=== PATIENT | female | born 1995 | race Caucasian/White ===

== ENCOUNTER 2022-03-05 21:41 | Day surgery (SDC) | payer OTHER ==
[2022-03-05 22:07] VITALS: BMI 31.6
[2022-03-05] MEDS ORDERED: hydrALAZINE 20 MG/ML VIAL SLOW IVP PRN (22:12)
== END 2022-03-06 00:19 | disposition home or self-care (01) ==
LOC: CSHLD/OP 21:41
PROVIDERS: ATTEND Obstetrics & Gynecology
DX: O36.8130 Decreased fetal movements, third trimester, not applicable or unspecified (principal); Z3A.34 34 weeks gestation of pregnancy; Z86.16 Personal history of COVID-19; Z79.82 Long term (current) use of aspirin; Z88.0 Allergy status to penicillin; Z28.310 Unvaccinated for COVID-19
CPT/HCPCS: 76819

== ENCOUNTER 2022-04-09 08:58 | Outpatient (CLI) | payer OTHER | END 2022-04-09 08:59 | disposition home or self-care (01) | LOC: CSHLAB 08:58 | PROVIDERS: ATTEND Obstetrics & Gynecology | DX: Z20.822 Contact with and (suspected) exposure to COVID-19 (principal) | CPT/HCPCS: U0003; U0005 ==

== ENCOUNTER 2022-04-10 17:06 | Inpatient (IN) | payer OTHER ==
[2022-04-10] MEDS ORDERED: hydrALAZINE 20 MG/ML VIAL SLOW IVP PRN ×2 (18:27→22:51)
[2022-04-10 18:59] VITALS: BMI 32.5
[2022-04-10] MEDS ORDERED: Promethazine HCl 25 MG/ML VIAL IM PRN ×2 (19:16→20:10)
[2022-04-10] MEDS ORDERED: Ondansetron PF 4 MG/2 ML Vial IVP PRN ×2 (19:16→20:10)
[2022-04-10] MEDS ORDERED: Butorphanol Tartrate 1 MG/ML VIAL SLOW IVP PRN (19:16)
[2022-04-10] MEDS ORDERED: Butorphanol Tartrate 1 MG/ML VIAL ONE (19:21)
[2022-04-10] MEDS ORDERED: Bicitra 30 ML UDCUP PO PRN (19:45)
[2022-04-10] MEDS ORDERED: Clindamycin/D5W 900 MG in Premix Bag 1 BAG IVPB SCH (19:45)
[2022-04-10] MEDS ORDERED: Azithromycin 500 MG in Sodium Chloride 0.9% 250 ML 250 ML IVPB SCH (19:45)
[2022-04-10] MEDS ORDERED: Famotidine/PF 20 mg/2ml Vial SLOW IVP PRN (19:45)
[2022-04-10] MEDS ORDERED: ceFAZolin 2 GM/Dextrose 50 ML IVPB ONE (19:49)
[2022-04-10] MEDS ORDERED: Azithromycin 500 MG VIAL ONE (19:49)
[2022-04-10] MEDS ORDERED: Dexamethasone 4 mg/ml Vial ONE (19:50)
[2022-04-10] MEDS ORDERED: PHENYLEPHRINE-NS 100 MCG/ML 10 ML SYRINGE ONE ×2 (19:50→20:40)
[2022-04-10] MEDS ORDERED: Morphine PF 10 MG/10 ML VIAL ONE (19:50)
[2022-04-10] MEDS ORDERED: Oxytocin 10 UNITS/ML VIAL ONE (19:50)
[2022-04-10] MEDS ORDERED: Ondansetron PF 4 MG/2 ML Vial ONE (19:50)
[2022-04-10 19:59] LABS: Hemoglobin 13.4 g/dL (12.0-15.5); Mean Corpuscular HGB CONC 35.9 g/dL (32.0-36.0); Mean Corpuscular Hemoglobin 31.5 pg (27.0-33.0); Mean Corpuscular Volume 87.6 fl (81.6-98.3); Mean Platelet Volume 10.5 fl (7.4-10.4); RBC Distribution Width 13.1 % (11.5-14.5); Red Blood Cell (RBC) Count 4.26 10x6/uL (3.90-5.03); White Blood Cell (WBC) Count 10.4 10x3/uL (3.5-10.5)
[2022-04-10] MEDS ORDERED: Promethazine HCl 25 MG SUPP PR PRN (20:10)
[2022-04-10] MEDS ORDERED: Moisturizing Cream (Eucerin) 113 GM JAR TOP PRN (20:10)
[2022-04-10] MEDS ORDERED: Meperidine HCl/PF 25 MG/ML VIAL SLOW IVP PRN (20:10)
[2022-04-10] MEDS ORDERED: Naloxone HCl 0.4 mg/ml Vial IVP PRN ×2 (20:10)
[2022-04-10] MEDS ORDERED: Ondansetron HCl/PF 4 MG/2 ML Vial IVP PRN (20:10)
[2022-04-10] MEDS ORDERED: Naloxone HCl 0.4 mg/ml Vial IV PRN (20:10)
[2022-04-10] MEDS ORDERED: L&D-Morphine 4 MG/ML VIAL SLOW IVP PRN (20:10)
[2022-04-10] MEDS ORDERED: Ketorolac Tromethamine 30 MG/ML VIAL IVP PRN (20:10)
[2022-04-10] MEDS ORDERED: Fentanyl 100 MCG/2 ML VIAL SLOW IVP PRN (20:10)
[2022-04-10] MEDS ORDERED: Communication Order-Pharmacy FS SCH (20:15)
[2022-04-10] MEDS ORDERED: Ketorolac Tromethamine 30 MG/ML VIAL IVP SCH (20:15)
[2022-04-10 20:17] LABS: Platelet Count 234 10x3/uL (150-450)
[2022-04-10 20:29] LABS: Fetal Membranes Rupture RUPTURE DETECTED (No Rupture)
[2022-04-10 20:43] LABS: Hep B Surf Ag Non-Reactive S/CO (NonReactive); Syphilis Antibody Nonreactive (Nonreactive); Syphilis Antibody Index 0.04 S/CO (<1.00 Non-Reactive)
[2022-04-10 20:47] LABS: HBSAg Index 0.16 S/CO (0-0.99)
[2022-04-10] MEDS ORDERED: Ketorolac Tromethamine 30 MG/ML VIAL ONE (20:58)
[2022-04-10] MEDS ORDERED: Gentamicin 130 MG, Admixture Fee 1 EACH in Sodium Chloride 0.9% 100 ML IVPB SCH (21:00)
[2022-04-10] MEDS: diphenhydrAMINE 50 MG/ML VIAL IVP PRN (22:42)
[2022-04-10] MEDS ORDERED: diphenhydrAMINE 25 MG CAP PO PRN (22:51)
[2022-04-10] MEDS ORDERED: Lanolin Ointment 7 GM TUBE TOP PRN (22:51)
[2022-04-10] MEDS ORDERED: Simethicone Chewable 80 MG TAB PO PRN (22:51)
[2022-04-10] MEDS ORDERED: Acetaminophen 325 MG TAB PO PRN (22:51)
[2022-04-10] MEDS ORDERED: Boostrix 0.5 ML (Tdap) VIAL IM ONE (22:51)
[2022-04-10] MEDS ORDERED: Bisacodyl 10 MG SUPP PR PRN (22:51)
[2022-04-11] MEDS: diphenhydrAMINE 50 MG/ML VIAL IVP PRN (03:50)
[2022-04-11] MEDS: Ferrous Sulfate 325 MG TAB PO SCH ×2 (07:49→15:35)
[2022-04-11] MEDS ORDERED: HYDROcodone/Acetaminophen 5/325 mg Tablet PO PRN (08:15)
[2022-04-11] MEDS ORDERED: Butorphanol Tartrate 1 MG/ML VIAL SLOW IVP PRN (08:15)
[2022-04-11] MEDS: Docusate 100 MG CAP PO SCH ×2 (09:18→20:46)
[2022-04-11] MEDS: Prenatal Vitamin 1 TAB PO SCH (09:18)
[2022-04-11] MEDS: HYDROcodone/Acetaminophen 5/325 mg Tablet PO PRN (20:47)
[2022-04-12] MEDS: HYDROcodone/Acetaminophen 5/325 mg Tablet PO PRN ×3 (03:08→14:07)
[2022-04-12] MEDS: Ibuprofen 800 MG TAB PO SCH ×2 (05:25→14:07)
[2022-04-12] MEDS: Docusate 100 MG CAP PO SCH (09:26)
[2022-04-12] MEDS: Prenatal Vitamin 1 TAB PO SCH (09:26)
[2022-04-12] MEDS: Ferrous Sulfate 325 MG TAB PO SCH (09:27)
[2022-04-12 13:58] VITALS: BP 117/76; TEMP 97.9
== END 2022-04-12 16:30 | disposition home or self-care (01) | DRG 787 ==
LOC: CSHLD/OP 17:06 → CSHLD 19:46 → CSHPP 04-11 05:45
PROVIDERS: ADMIT Obstetrics & Gynecology; ATTEND Obstetrics & Gynecology
PROC: 10D00Z1 Extraction of Products of Conception, Low, Open Approach (ICD-10-PCS; principal; 2022-04-10)
DX: O42.02 Full-term premature rupture of membranes, onset of labor within 24 hours of rupture (principal); O98.52 Other viral diseases complicating childbirth; Z37.0 Single live birth; B00.9 Herpesviral infection, unspecified; Z3A.39 39 weeks gestation of pregnancy; O26.893 Other specified pregnancy related conditions, third trimester; Z67.31 Type AB blood, Rh negative; Z86.16 Personal history of COVID-19; Z79.82 Long term (current) use of aspirin; Z79.899 Other long term (current) drug therapy; Z88.0 Allergy status to penicillin
CPT/HCPCS: 51702; 84112; 85027; 86780; 86850; 86900; 86901; 87340; 88307; 99285; J0456; J0595; J1100; J1200; J1885; J2274; J2310; J2405; J2590